=== PATIENT | female | born 1945 | race Hispanic/Latino ===

== ENCOUNTER 2018-05-31 05:07 | Inpatient (IN) | payer MEDICARE, OTHER ==
[2018-05-31 05:09] VITALS: BMI 17.6
--- NOTE | 2018-05-31 05:23 | ED PDOC ---
Arrival/HPI - General Time Seen by Provider: 05/31/18 05:12 Historian: Patient - History of Present Illness Narrative History of Present Illness (Text): 05/31/18 05:20 73 year old female, whose past medical history includes COPD and hypertension, presents to the emergency department complaining of shortness of breath associated with sore throat and stuffy nose for that past day. Patient states she stopped smoking since 2007. Patient also reports fever and chills, but denies any chest pain, palpitation, abdominal pain, nausea, vomiting, diarrhea, urinary symptoms, back pain, neck pain, headache, dizziness, or any other complaints. Time/Duration: 24 hours Symptom Onset: Gradual Symptom Course: Unchanged Activities at Onset: Light Context: Home Past Medical History - Provider Review Nursing Documentation Reviewed: Yes Family/Social History - Physician Review Nursing Documentation Reviewed: Yes Family/Social History: No Known Family HX Allergies/Home Meds Allergies/Adverse Reactions: Allergies No Known Allergies Allergy (Verified 05/31/18 15:23) Home Medications: Home Meds Medication Instructions Recorded Confirmed ALPRAZolam [Xanax] 0.25 mg PO Q6H PRN 05/31/18 05/31/18 Olmesartan Medoxomil [Benicar] 20 mg PO DAILY 05/31/18 05/31/18 Review of Systems - Physician Review All systems were reviewed & negative as marked: Yes - Review of Systems Constitutional: Fevers, Other (Chills) ENT: Sore Throat, Sinus Congestion Respiratory: SOB Cardiovascular: absent: Chest Pain Gastrointestinal: absent: Abdominal Pain, Diarrhea, Nausea, Vomiting Genitourinary Female: absent: Dysuria, Frequency, Hematuria Musculoskeletal: absent: Back Pain, Neck Pain Neurological: absent: Headache, Dizziness Physical Exam Vital Signs Reviewed: Yes Vital Signs Temp Pulse Resp BP Pulse Ox 05/31/18 11:40 98 F 82 20 112/69 97 05/31/18 11:09 90 18 108/54 L 92 L 05/31/18 09:32 108 H 18 162/78 H 96 05/31/18 07:01 80 20 167/87 H 94 L 05/31/18 05:29 18 92 L 05/31/18 05:18 99.5 F 96 H 18 118/106 H 93 L Temperature: Afebrile Blood Pressure: Hypertensive Pulse: Regular Respiratory Rate: Normal Appearance: Positive for: Well-Appearing, Non-Toxic, Comfortable Pain Distress: None Mental Status: Positive for: Alert and Oriented X 3 - Systems Exam Head: Present: Atraumatic, Normocephalic Pupils: Present: PERRL Extroacular Muscles: Present: EOMI Conjunctiva: Present: Normal Mouth: Present: Moist Mucous Membranes Neck: Present: Normal Range of Motion Respiratory/Chest: Present: Clear to Auscultation. No: Good Air Exchange ( Decreased air way entry ), Respiratory Distress, Accessory Muscle Use Cardiovascular: Present: Regular Rate and Rhythm, Normal S1, S2. No: Murmurs Abdomen: No: Tenderness, Distention, Peritoneal Signs Back: Present: Normal Inspection Upper Extremity: Present: Normal Inspection. No: Cyanosis, Edema Lower Extremity: Present: Normal Inspection. No: Edema Neurological: Present: GCS=15, CN II-XII Intact, Speech Normal Skin: Present: Warm, Dry, Normal Color. No: Rashes Psychiatric: Present: Alert, Oriented x 3, Normal Insight, Normal Concentration Medical Decision Making ED Course and Treatment: 05/31/18 05:19 Impression: 73 year old female presents complaining of shortness of breath associated with sore throat, nasal congestion, fever, and chills for the past day. Plan: -- Labs -- EKG -- Chest X-Ray -- Blood Culture -- Influenza A B stat, Rapid Strep A Antigen -- reassess and disposition Progress Notes: 05/31/18 05:20 EKG shows Sinus Rhythm at [address] segment change. Interpreted by me. 05/31/18 05:52 Chest X-Ray Impression: As ready by me, COPD. - Lab Interpretations Microbiology Results: Microbiology Results 05/31/18 05:45 Blood-Venous Blood Culture - Preliminary NO GROWTH AFTER 3 DAYS 05/31/18 05:30 Blood-Venous Blood Culture - Preliminary NO GROWTH AFTER 3 DAYS 05/31/18 05:45 Throat Group A Strep Throat Culture - Final NO BETA STREP GROUP A ISOLATED. Lab Results: 05/31/18 05:45 05/31/18 05:45 Lab Results 05/31/18 07:00: Triglycerides 67, Cholesterol 205 H, LDL Cholesterol Direct 96, HDL Cholesterol 80 H 05/31/18 05:45: Influenza Typ A,B (EIA) Negative for flu a/b, Grp A Beta Strep Ag Negative 05/31/18 05:45: Sodium 140, Potassium 3.6, Chloride 101, Carbon Dioxide 31, Anion Gap 12, BUN 16, Creatinine 0.6 L, Est GFR ( Amer) > 60, Est GFR ( Non-Af Amer) > 60, Random Glucose 140 H, Calcium 9.3, Magnesium 1.9, Total Bilirubin 2.3 H, AST 40 H, ALT 34, Alkaline Phosphatase 68, Lactate Dehydrogenase 659, Total Creatine Kinase 76, Troponin I < 0.01, NT-Pro-B Natriuret Pep 83.2, Total Protein 7.6, Albumin 4.4, Globulin 3.1, Albumin/ Globulin Ratio 1.4 05/31/18 05:45: PT 11.7, INR 1.02, APTT 27.0 05/31/18 05:45: WBC 7.1, RBC 4.64, Hgb 14.6, Hct 42.3, MCV 91.2, MCH 31.5, MCHC 34.5, RDW 13.4, Plt Count 129, MPV 9.7, Gran % 87.8 H, Lymph % (Auto) 7.1 L, [place] % (Auto) 4.8, Eos % (Auto) 0.3 L, Baso % (Auto) 0.0, Gran # 6.20, Lymph # ( Auto) 0.5 L, [place] # (Auto) 0.3, Eos # (Auto) 0.0, Baso # (Auto) 0.00 I have reviewed the lab results: Yes - RAD Interpretation Radiology Orders: 05/31/18 05:23 CHEST PORTABLE [RAD] Stat - EKG Interpretation Interpreted by ED Physician: Yes Type: 12 lead EKG - Medication Orders Current Medication Orders: Discontinued Medications Acetaminophen (Tylenol 325mg Tab) 650 mg PO Q6H PRN PRN Reason: Fever >100.4 F Albuterol/Ipratropium (Duoneb 3 Mg/0.5 Mg (3 Ml) Ud) 3 ml IH Q15M LESLIE Stop: 05/31/18 07:31 Last Admin: 05/31/18 08:55 Dose: 3 ml Albuterol/Ipratropium (Duoneb 3 Mg/0.5 Mg (3 Ml) Ud) 3 ml IH [id number] LESLIE Last Admin: 06/02/18 13:53 Dose: 3 ml Albuterol/Ipratropium (Duoneb 3 Mg/0.5 Mg (3 Ml) Ud) 3 ml IH Q2H PRN PRN Reason: Shortness of Breath Albuterol/Ipratropium (Duoneb 3 Mg/0.5 Mg (3 Ml) Ud) 3 ml IH Q2H PRN PRN Reason: Shortness of Breath Albuterol/Ipratropium (Duoneb 3 Mg/0.5 Mg (3 Ml) Ud) 3 ml IH [id number] [facility] Last Admin: 06/02/18 01:12 Dose: Alprazolam (Xanax) 0.25 mg PO Q6H PRN; Protocol PRN Reason: Anxiety Stop: 06/07/18 10:15 Budesonide (Pulmicort Respules) 0.5 mg IH [id number] [facility] Last Admin: 06/02/18 07:43 Dose: 0.5 mg Fluticasone Propionate (Flonase) 1 actuation NS STAT STA Stop: 05/31/18 08:25 Last Admin: 05/31/18 10:40 Dose: 1 spr Fluticasone Propionate (Flonase) 1 actuation NS DAILY [facility] Last Admin: 06/02/18 11:00 Dose: 1 spray Levofloxacin (Levaquin) 500 mg PO DAILY LESLIE PRN Reason: Protocol Last Admin: 06/02/18 11:00 Dose: 500 mg Methylprednisolone (Solu-Medrol) 125 mg IVP ONCE ONE Stop: 05/31/18 06:57 Last Admin: 05/31/18 07:03 Dose: 125 mg IVP Administration Document 05/31/18 07:03 RG (Rec: 05/31/18 07:07 [id number]) Charges for Administration # of IVP Administrations 1 Methylprednisolone (Solu-Medrol) 30 mg IVP Q12 [facility] Last Admin: 05/31/18 21:49 Dose: 30 mg IVP Administration Document 05/31/18 21:49 [employer]ORDS CLERK (Rec: 05/31/18 21:49 [id number]) Charges for Administration # of IVP Administrations 1 Methylprednisolone (Solu-Medrol) 40 mg IV Q12 [facility] Last Admin: 05/31/18 10:39 Dose: 40 mg eMAR Start Stop Document 05/31/18 10:39 [employer] RECORDS CLERK (Rec: 05/31/18 10:39 H[employer] RECORDS CLERK [id number]) Intravenous Solution Start Date 05/31/18 Start Time 10:39 End Date 05/31/18 End time 10:39 Total Infusion Time 0 Methylprednisolone (Solu-Medrol) 40 mg IV Q12 [facility] Last Admin: 06/02/18 11:01 Dose: 40 mg eMAR Start Stop Document 06/02/18 11:01 CV (Rec: 06/02/18 11:01 CV [id number]) Intravenous Solution Start Date 06/02/18 Start Time 11:01 Ondansetron HCl (Zofran Inj) 4 mg IVP Q6H PRN PRN Reason: Nausea/Vomiting Pantoprazole Sodium (Protonix Ec Tab) 40 mg PO 0630 [facility] Last Admin: 06/02/18 05:46 Dose: Not Given Non-Admin Reason: Patient Refused Pneumococcal Polyvalent Vaccine (Pneumovax 23 Vaccine) 0.5 ml IM .ONCE ONE Stop: 05/31/18 15:45 Last Admin: 05/31/18 16:10 Dose: Immunization Registry Document 05/31/18 16:10 ANTOALL (Rec: 05/31/18 16:10 ANTOALL [id number]) Immunization Registry Consent Date 05/31/18 Prednisone (Prednisone Tab) 40 mg PO DAILY [facility] Last Admin: 06/01/18 10:11 Dose: 40 mg - Scribe Statement The provider has reviewed the documentation as recorded by the Ceci Zuniga Provider Scribe Attestation: All medical record entries made by the Ceci were at my direction and personally dictated by me. I have reviewed the chart and agree that the record accurately reflects my personal performance of the history, physical exam, medical decision making, and the department course for this patient. I have also personally directed, reviewed, and agree with the discharge instructions and disposition. Disposition/Present on Arrival - Present on Arrival Any Indicators Present on Arrival: No - Disposition Have Diagnosis and Disposition been Completed?: Yes Diagnosis: Chronic obstructive lung disease Disposition: HOSPITALIZED Disposition Time: 07:00 Condition: FAIR
[2018-05-31 06:00] LABS: INR 1.02; PROTHROMBIN TIME 11.7 SECONDS (9.4-12.5)
[2018-05-31 06:20] LABS: ALB/GLOB RATIO 1.4 (1.1-1.8); ALBUMIN 4.4 g/dL (3.0-4.8); ALT/SGPT 34 U/L (7-56); AST/SGOT 40 U/L (14-36); BLOOD UREA NITROGEN 16 mg/dL (7-21); CALCIUM 9.3 mg/dL (8.4-10.5); EOS % 0.3 % (1.5-5.0); GFR NON-AFRICAN AMERICAN > 60; GRAN # 6.2 (1.4-6.5); GRAN % 87.8 % (50.0-68.0); HEMOGLOBIN 14.6 g/dL (12.0-16.0); LYMPH # 0.5 (1.2-3.4); LYMPH % 7.1 % (22.0-35.0); MEAN CELL VOLUME 91.2 fl (80.0-105.0); MEAN CORPUSCULAR HEMOGLOBIN 31.5 pg (25.0-35.0); MEAN CORPUSCULAR HGB CONC 34.5 g/dl (31.0-37.0); MEAN PLATELET VOLUME 9.7 fl (7.0-11.0); MONO # 0.3 (0.1-0.6); MONO % 4.8 % (1.0-6.0); RBC 4.64 10^6/uL (3.5-6.1); RED CELL DISTRIBUTION WIDTH 13.4 % (11.5-14.5); WHITE BLOOD COUNT 7.1 10^3/ul (4.5-11.0)
[2018-05-31 06:24] LABS: INFLUENZA A B NEGATIVE FOR FLU A/B (NEGATIVE)
[2018-05-31 06:29] LABS: B-TYPE NATRIURETIC PEPTIDE 83.2 pg/mL (0-450); TROPONIN I < 0.01 ng/mL
[2018-05-31] MEDS: Albuterol-Ipratrop 3 mg / 0.5 (3 ml) UD IH SCH ×6 (07:08→19:09)
[2018-05-31] MEDS ORDERED: Albuterol-Ipratrop 3 mg / 0.5 (3 ml) UD IH PRN ×2 (08:24→10:15)
[2018-05-31] MEDS ORDERED: Fluticasone Nasal 50 mcg/Spray NS STA (08:24)
--- NOTE | 2018-05-31 09:29 | RAD ---
Date of service: 05/31/2018 HISTORY: Shortness of breath COMPARISON: No prior. FINDINGS: LUNGS: The lungs are hyperinflated and there is peribronchial thickening with chronic changes in both lungs. PLEURA: No significant pleural effusion identified, no pneumothorax apparent. CARDIOVASCULAR: Normal. OSSEOUS STRUCTURES: No significant abnormalities. VISUALIZED UPPER ABDOMEN: Normal. OTHER FINDINGS: None. IMPRESSION: No active pulmonary disease. COPD.
[2018-05-31] MEDS ORDERED: MethylPREDNISolone 40 mg Vial IV SCH (10:15)
[2018-05-31] MEDS: levoFLOXacin 500 MG TAB PO SCH (10:39)
[2018-05-31] MEDS: MethylPREDNISolone 40 mg Vial IVP SCH ×2 (10:39→21:49)
--- NOTE | 2018-05-31 11:23 | CON ---
DATE: 05/31/2018 REASON FOR CONSULTATION: Chronic obstructive pulmonary disease. REFERRING PHYSICIAN: Papito Zavala MD HISTORY OF PRESENT ILLNESS: The patient is a 73-year-old female, with past medical history significant for chronic obstructive pulmonary disease, hypertension, who presents with a 1-day history of increasing dyspnea on exertion, and nonproductive cough. In addition, over the past day, the patient also states to a sore throat, and nasal congestion. The patient is not short of breath at rest. She has no significant sputum production. There is no history of chest pain, coughing up of blood or chest pain - made worse with deep respirations. The patient did present to the emergency room with low grade fevers (99.5). No history of chills or infectious exposure. No history of night sweats, weight loss or appetite change prior to the above events. No history of leg or calf pains. No history of syncope or diaphoresis. No history of recent travel or trauma. REVIEW OF SYSTEMS: No history of nausea, vomiting or diarrhea. No acute urinary symptoms. No new neurologic complaints. Rest of review of systems is negative. ALLERGIES: NO KNOWN ALLERGIES. SOCIAL HISTORY: Positive for tobacco - stopped in 2007. No alcohol. FAMILY HISTORY: No inheritable diseases. HOME MEDICATIONS: Include Xanax, Benicar and ProAir inhaler. PHYSICAL EXAMINATION: GENERAL: The patient appears comfortable this morning. She is not short of breath at rest. VITAL SIGNS: Temperature is 99.5, pulse is 80, respirations 18/20, blood pressure 167/87. Oxygen saturation on nasal cannula is 94%. HEENT: Normocephalic, atraumatic. No JVD. CARDIOVASCULAR: Positive S1, S2. No S3 gallop. LUNGS: Decreased breath sounds at the bases. Minimal rhonchi. A few/minimal expiratory wheezes. EXTREMITIES: No clubbing, cyanosis or edema. Calves are nontender to palpation. GI: Abdomen is soft, nontender and nondistended. Bowel sounds are positive. SKIN: No acute rash. NEUROLOGIC: Exam limited at the present time. PERTINENT LABORATORY DATA: Chest x-ray was done and reviewed. It is a poor rotated portable film. The lungs do show a hyperaerated appearance. There are no significant infiltrates noted. Official results are pending. CBC: White count 7.1K, hemoglobin 14.6, hematocrit 42.3, platelets of 129,000. Complete metabolic profile: Glucose 140, bilirubin 2.3, AST 40. Rest of the metabolic profiles within normal limits. Influenza swab is negative. IMPRESSION: 1. Acute bronchitis. 2. Acute rhinitis. 3. Chronic obstructive pulmonary disease. 4. Hypertension. PLAN: The patient presents to [facility] with main complaints of increasing dyspnea on exertion and cough over the past 1 day. In addition, as above, the patient also stated to a sore throat and nasal congestion over the past day. Lastly, the patient did present with low-grade temperatures. She was thus admitted for additional evaluation. I did review the chest x-ray as above. Again, is a poor rotated film, but I do not appreciate any significant infiltrates. I have also reviewed the laboratory data. There is no leukocytosis present. I will start the patient on oral antibiotic therapy - given the above history and presentation. On physical exam, there is mild bronchospasm noted. I will start the patient on nebulizer treatments and low-dose intravenous steroids this morning. In addition, I will also start nasal steroids. The patient did get IV Solu-Medrol in the emergency room. The patient does feel much better this morning, and is clinically improved. Additional pulmonary intervention will be based on the clinical status of the patient. I will discuss the above with the attending physician. Thank you very much for this pulmonary consultation. Ivan Jain MD KIRSTEN
[2018-05-31 12:41] LABS: HDL CHOLESTEROL 80 mg/dL (29-60)
[2018-05-31 12:51] LABS: LDL CHOLESTEROL 96 mg/dL (0-129)
--- NOTE | 2018-05-31 13:33 | HP ---
HISTORY OF PRESENT ILLNESS: The patient is 73 years old, who works as a lunch aide in [employer]. The patient states she was well over the weekend. She went for shopping yesterday. She noticed she was having dry cough. Her throat was hurting. She does admit that when she brought her grocery, her Lysol spilled and probably she inhaled the fumes and since then she has not been feeling well. She was short of breath. She told her family, who brought her to emergency room. She denies any fever. Does complain of having chills, dry cough, shortness of breath. No hemoptysis. No nausea or vomiting. No diarrhea. PAST MEDICAL HISTORY: Significant for hypertension and anxiety disorder. Denies having any chest pain. She does have a history of 2 C-sections. ALLERGY: SHE IS NOT ALLERGIC TO ANY MEDICATION. MEDICATIONS AT HOME: She is on Benicar that she takes half a pill every other day. She takes Xanax as needed. She does have a history of smoking. Denies any alcohol use or substance abuse. REVIEW OF SYSTEMS: Significant for shortness of breath and dry cough. PHYSICAL EXAMINATION: GENERAL: She is awake and alert, able to communicate, answer appropriately. VITAL SIGNS: She is afebrile, pulse 82, respirations 20, blood pressure 112/69. LUNGS: Bilateral good airflow. No rhonchi or crackle. HEART: S1 and S2 audible. ABDOMEN: Soft. Nontender. No rebound. No guarding. NEUROLOGICAL: She is awake, alert, oriented, communicative. EXTREMITIES: Bilateral leg, no edema. LABORATORY EXAM: WBC 7.1, hemoglobin 14.6, hematocrit 42.3, platelet 129. PT 11.7, INR 1.02. Chemistry: Sodium 140, potassium 3.6, chloride 101, CO2 of 31, BUN 16, creatinine 0.6, blood sugar of 140, total bili 2.3, AST 40. test is negative. Stress test is negative. ASSESSMENT: 1. Chronic obstructive pulmonary disease exacerbation. 2. History of smoking. 3. History of hypertension. 4. Hypothyroidism. PLAN: We will start her on IV steroid, start her on nebulizer treatment. She is on Protonix. Give her Xanax as needed. We will reevaluate the patient in the a.m. and make further plans. Papito Zavala MD
[2018-05-31] MEDS ORDERED: Pneumococcal 23-Valent Vaccine IM ONE (15:44)
[2018-05-31] MEDS: Budesonide 0.5 mg/2 ml Inhal Susp UD IH SCH (19:10)
[2018-06-01] MEDS: Albuterol-Ipratrop 3 mg / 0.5 (3 ml) UD IH SCH ×6 (01:51→19:09)
[2018-06-01] MEDS: Pantoprazole 40 mg EC Tab PO SCH (06:20)
[2018-06-01] MEDS: Budesonide 0.5 mg/2 ml Inhal Susp UD IH SCH ×2 (07:20→19:09)
[2018-06-01 07:27] LABS: FREE T4 0.91 ng/dL (0.78-2.19)
--- NOTE | 2018-06-01 07:57 | PN ---
DATE: 06/01/2018 SUBJECTIVE: The patient appears very comfortable this morning. She is not short of breath at rest. PHYSICAL EXAMINATION: VITAL SIGNS: (Last noted in the computer): Temperature is 98.5, pulse 91, respirations 18, blood pressure 135/68. Oxygen saturation on nasal cannula is 95%. HEENT: Normocephalic, atraumatic. No JVD. CARDIOVASCULAR: Positive S1, S2. No S3 gallop. LUNGS: Improved breath sounds at the bases. Minimal/less rhonchi. No wheezing this morning. EXTREMITIES: No clubbing, cyanosis, or edema. Calves are nontender to palpation. GASTROINTESTINAL: Abdomen is soft, nontender, and nondistended. Bowel sounds are positive. SKIN: No acute rash. NEUROLOGIC: Limited at the present time that IMPRESSION: 1. Acute bronchitis. 2. Acute rhinitis. 3. Chronic obstructive pulmonary disease. 4. Hypertension. PLAN: The patient appears very comfortable this morning. She is not short of breath at rest. She has less nasal symptoms. She states to feeling much, much better overall. On physical exam, her bronchospasm is certainly much less. In addition, there is no significant alveolar-arterial gradient. I will continue with the current nebulizer treatments, and change to oral steroids this morning. I will also continue with the nasal steroids. Lastly, the patient remains on oral antibiotic therapy. The temperatures have now resolved. There is no leukocytosis. Clinical status of the patient is significantly improved overall. I will discuss the above with the attending physician. Ivan Jain MD KIRSTEN
[2018-06-01] MEDS: levoFLOXacin 500 MG TAB PO SCH (10:11)
[2018-06-01] MEDS: Fluticasone Nasal 50 mcg/Spray NS SCH (10:11)
--- NOTE | 2018-06-01 12:41 | PN ---
DATE: 06/01/2018 SUBJECTIVE: The patient is 73 years old, seen and examined, doing a little better. Still has cough and congestion with wheezing. PHYSICAL EXAMINATION: VITAL SIGNS: She is afebrile, pulse 80, respirations 18, blood pressure 136/75. LUNGS: Bilateral expiratory rhonchi, more pronounced posteriorly. HEART: S1 and S2 audible. ABDOMEN: Soft. Nontender. No rebound. No guarding. NEUROLOGICAL: The patient is awake, alert, oriented, communicative. LABORATORY EXAM: Her TSH is 0.36, T4 is 91. ASSESSMENT: 1. Chronic obstructive pulmonary disease exacerbation. 2. Bronchospasm with asthmatic bronchitis. The patient states she was exposed to Lysol and an ammonia that she has been using as a cleaning product. 3. Hypertension. 4. Anxiety disorder. PLAN: We will continue the patient on nebulizer treatment. We will continue her on Flonase. She is still having wheezing with productive cough. I will give her 2-3 doses of Solu-Medrol. We will reevaluate in the a.m. The patient continued to improve. Possible discharge in the a.m. We will follow up the patient. Papito Zavala MD
--- NOTE | 2018-06-01 14:08 | CARD ---
APPROVED REPORT Date of service: 05/31/2018 EKG Measurement Heart [id number] <Conclusion> Normal sinus rhythm Possible Left atrial enlargement Left ventricular hypertrophy with repolarization abnormality Abnormal ECG
[2018-06-01] MEDS: MethylPREDNISolone 40 mg Vial IV SCH ×2 (15:18→21:12)
[2018-06-02] MEDS: Albuterol-Ipratrop 3 mg / 0.5 (3 ml) UD IH SCH ×4 (01:12→13:53)
[2018-06-02] MEDS: Pantoprazole 40 mg EC Tab PO SCH (05:46)
[2018-06-02] MEDS: Budesonide 0.5 mg/2 ml Inhal Susp UD IH SCH (07:43)
[2018-06-02 07:50] VITALS: BP 140/80; PULSE 85; RESP 18; TEMP 97.9; O2SAT 95
--- NOTE | 2018-06-02 08:17 | PN ---
DATE: 06/02/2018 PULMONARY NOTE SUBJECTIVE: The patient appears very comfortable this morning. She is not short of breath at rest. PHYSICAL EXAMINATION: VITAL SIGNS: Temperature is 97.9, pulse 85, respirations 18, blood pressure 140/80. Oxygen saturation on nasal cannula is 95%. HEENT: Normocephalic, atraumatic. No JVD. CARDIOVASCULAR: Positive S1, S2. No S3 gallop. LUNGS: Very minimal/less rhonchi. No wheezing. EXTREMITIES: No clubbing, cyanosis or edema. Calves are nontender to palpation. GI: Abdomen is soft, nontender and nondistended. Bowel sounds are positive. SKIN: No acute rash. NEUROLOGIC: Limited at the present time. IMPRESSION: 1. Acute bronchitis. 2. Acute rhinitis. 3. Chronic obstructive pulmonary disease. 4. Hypertension. PLAN: The patient appears very comfortable this morning. She is not short of breath at rest. She does state to feeling much better overall. I did discuss the case with the night nurse at length. The night nurse stated that the patient had a very good night. On physical exam, the patient's bronchospasm continues to resolve. In addition, the alveolar arterial gradient also continues to resolve. I would advise, at this point in time, changing to oral steroids. However, I will leave the steroid taper up to Internal Medicine. I would also continue the nasal steroids and antibiotics for now. Clinical status of the patient is significantly improved overall. The patient is for discharge in the very near future. I did give the patient my card/information for followup appointment. She states she will definitely follow up with me in the office. Please call me for any additional questions or problems with this patient. I would be happy to reevaluate. Ivan Jain MD MTDCarolina
[2018-06-02] MEDS: Fluticasone Nasal 50 mcg/Spray NS SCH (11:00)
[2018-06-02] MEDS: levoFLOXacin 500 MG TAB PO SCH (11:00)
[2018-06-02] MEDS: MethylPREDNISolone 40 mg Vial IV SCH (11:01)
--- NOTE | 2018-06-02 14:16 | DS ---
HISTORY OF PRESENT ILLNESS: The patient is 73 years old seen and examined, doing well, was admitted with shortness of breath, productive cough with deep yellow phlegm. The patient states she was exposed to Clorox, after that she started to have these symptoms, so she was admitted, given IV antibiotics, given IV steroid, nebulizer treatment, seems to be doing well, ready to go home. PHYSICAL EXAMINATION: VITAL SIGNS: She is afebrile, pulse 85, respirations 18, blood pressure 140/80. LUNGS: Bilateral fair airflow, few occasional expiratory rhonchi. HEART: S1, S2 audible. ABDOMEN: Soft, nontender. No rebound, no guarding. NEUROLOGICAL: The patient is awake, alert, oriented, communicative, and ambulatory. LABORATORY EXAM: There is no new lab available today. ASSESSMENT: 1. Chronic obstructive pulmonary disease exacerbation. 2. Hypertension. 3. Hyperlipidemia. 4. Anxiety disorder. PLAN: The patient will be discharged home on Levaquin 500 daily for 5 more days. We will give her prednisone 20 mg twice a day for a week. She will be given Symbicort and I will give her ProAir inhaler and the patient will follow up with . Papito Zavala MD
== END 2018-06-02 16:35 | disposition home or self-care (01) | DRG 192 ==
LOC: ED 05:07 → ERH 06:56 → OBSVTOIN 09:11 → ERH 10:12 → 5RNO 11:40
PROVIDERS: ADMIT Internal Medicine; ATTEND Internal Medicine
DX: J44.1 Chronic obstructive pulmonary disease with (acute) exacerbation (principal); I10 Essential (primary) hypertension; E03.9 Hypothyroidism, unspecified; Z87.891 Personal history of nicotine dependence; J20.9 Acute bronchitis, unspecified; E78.5 Hyperlipidemia, unspecified; F41.9 Anxiety disorder, unspecified; J44.0 Chronic obstructive pulmonary disease with (acute) lower respiratory infection; R40.2412 Glasgow coma scale score 13-15, at arrival to emergency department